=== PATIENT | male | born 1975 | race Caucasian/White ===

== ENCOUNTER 2016-12-15 10:24 | Inpatient (IN) | payer OTHER ==
[2016-12-15 11:10] VITALS: BMI 22.1
--- NOTE | 2016-12-15 13:34 | HP ---
CIWA Score - CIWA Score Nausea/Vomitin-Mild Nausea/No Vomiting Muscle Tremors: 4-Moderate,w/Arms Extend Anxiety: 3 Agitation: 3 Paroxysmal Sweats: 3 Orientation: 0-Oriented Tacttile Disturbances: 0-None Auditory Disturbances: 0-None Visual Disturbances: 0-None Headache: 0-None Present CIWA-Ar Total Score: 14 Admission ROS BHS - HPI Chief Complaint: I am here for detox. Allergies/Adverse Reactions: Allergies Allergy/AdvReac Type Severity Reaction Status Date / Time No Known Allergies Allergy Verified 12/15/16 11:42 History of Present Illness: pt is a 41yr old male with a history of alcohol dependence seeking detox for treatment. Exam Limitations: No Limitations - Ebola screening Have you traveled outside of the country in the last 21 days: No Have you had contact with anyone from an Ebola affected area: No Have you been sick,other than usual withdrawal symptoms: No Do you have a fever: No - Review of Systems Constitutional: Chills, Diaphoresis, Loss of Appetite, Night Sweats EENT: reports: No Symptoms Reported Respiratory: reports: Cough Cardiac: reports: Syncope GI: reports: No Symptoms Reported : reports: No Symptoms Reported Musculoskeletal: reports: No Symptoms Reported Neuro: reports: Tingling, Tremors Endocrine: reports: Excessive Sweating, Flushing, Intolerance to Cold, Intolerance to Heat Hematology: reports: No Symptoms Reported Psychiatric: reports: Judgement Intact, Orientated x3, Agitated, Anxious Other Systems: Reviewed and Negative Patient History - Patient Medical History Hx Anemia: No Hx Asthma: No Hx Chronic Obstructive Pulmonary Disease (COPD): No Hx Cancer: No Hx Cardiac Disorders: No Hx Congestive Heart Failure: No Hx Hypertension: No Hx Hypercholesterolemia: No Hx Pacemaker: No HX Cerebrovascular Accident: No Hx Seizures: No Hx Diabetes: No Hx Gastrointestinal Disorders: Yes (acid reflux) Hx Liver Disease: No Hx Genitourinary Disorders: No Hx Sexually Transmitted Disorders: No Hx Renal Disease (ESRD): No Hx Thyroid Disease: No Hx Human Immunodeficiency Virus (HIV): No (negative) Hx Hepatitis C: No (negative) Hx Depression: Yes Hx Suicide Attempt: No (denies) Hx Bipolar Disorder: No Hx Schizophrenia: No - Patient Surgical History Past Surgical History: No Hx Neurologic Surgery: No Hx Cataract Extraction: No Hx Cardiac Surgery: No Hx Lung Surgery: No Hx Breast Surgery: No Hx Breast Biopsy: No Hx Abdominal Surgery: No Hx Appendectomy: No Hx Cholecystectomy: No Hx Genitourinary Surgery: No Hx Section: No Hx Orthopedic Surgery: No Anesthesia Reaction: No - PPD History Previous Implant?: Yes Documented Results: Negative w/o proof Implanted On Prior [facility] Admission?: No PPD to be Administered?: Yes - Reproductive History Patient is a Female of Child Bearing Age (11 -55 yrs old): No - Smoking Cessation Smoking history: Current every day smoker Have you smoked in the past 12 months: Yes Aproximately how many cigarettes per day: 30 Hx Chewing Tobacco Use: No Initiated information on smoking cessation: Yes 'Breaking Loose' booklet given: 12/15/16 - Substance & Tx. History Hx Alcohol Use: Yes Hx Substance Use: No Substance Use Type: Alcohol Hx Substance Use Treatment: No - Substances Abused Alcohol-beer Route: Oral Frequency: Daily Amount used: 3-6 pks.beer Age of first use: 18 Date of Last Use: 12/15/16 Family Disease History - Family Disease History Family History: Denies Admission Physical Exam [facility] - Vital Signs Vital Signs: Vital Signs - 24 hr 12/15/16 11:08 Temperature 96.8 F L Pulse Rate 74 Respiratory 18 Rate Blood Pressure 110/73 - Physical General Appearance: Yes: Appropriately Dressed, Moderate Distress, Tremorous, Irritable, Sweating, Anxious HEENTM: Yes: Normal Voice, Rhinorrhea Respiratory: Yes: Lungs Clear, Normal Breath Sounds, No Respiratory Distress Neck: Yes: No masses,lesions,Nodules Breast: Yes: Within Normal Limits Cardiology: Yes: Regular Rhythm, Regular Rate, S1, S2 Abdominal: Yes: Normal Bowel Sounds Genitourinary: Yes: Within Normal Limits Back: Yes: Normal Inspection Musculoskeletal: Yes: full range of Motion Neurological: Yes: Fully Oriented, Alert, Normal Response Integumentary: Yes: Normal Color, Diaphoresis Lymphatic: Yes: Within Normal Limits - Diagnostic (1) Alcohol dependence with uncomplicated withdrawal Current Visit: Yes Status: Chronic (2) Nicotine dependence Current Visit: Yes Status: Chronic Qualifiers: Nicotine product type: cigarettes Substance use status: uncomplicated Qualified Code(s): F17.210 - Nicotine dependence, cigarettes, uncomplicated Cleared for Admission [facility] - Detox or Rehab [facility] Level of Care: Medically Managed Detox Regimen/Protocol: Librium S Breath Alcohol Content Breath Alcohol Content: 0.143 Urine Drug Screen - Results Drug Screen Negative: Yes
[2016-12-15] MEDS ORDERED: IBUPROFEN 400 MG TABLET (FP) PO PRN (13:46)
[2016-12-15] MEDS ORDERED: MAGNESIUM HYDROX 2400MG/30ML ORAL SUSPENSION 30 ML CUP PO PRN (13:46)
[2016-12-15] MEDS ORDERED: ACETAMINOPHEN 325 MG TABLET (FP) PO PRN (13:46)
[2016-12-15] MEDS ORDERED: MAG HYDROX/AL HYDROX/SIMETH 30 ML UNIT-DOSE CUP PO PRN (13:46)
[2016-12-15] MEDS ORDERED: MAGNESIUM CITRATE 300 ML BOTTLE PO PRN (13:46)
[2016-12-15] MEDS ORDERED: MENTHOL/PHENOL 1 EACH UD MM PRN (13:46)
[2016-12-15] MEDS ORDERED: P-EPHED 60MG/TRIPROLIDI 2.5MG TABLET PO PRN (13:46)
[2016-12-15] MEDS ORDERED: hydrOXYzine PAMOATE 50 MG CAPSULE (FP) PO PRN (13:46)
[2016-12-15] MEDS ORDERED: chlordiazePOXIDE HCL 25 MG CAPSULE PO PRN (13:46)
[2016-12-15] MEDS ORDERED: LOPERAMIDE HCL 2 MG CAPSULE PO PRN (13:46)
[2016-12-15] MEDS ORDERED: diphenhydrAMINE HCL 50 MG CAPSULE PO PRN (13:46)
[2016-12-15] MEDS ORDERED: chlordiazePOXIDE HCL 25 MG CAPSULE PO ONE (14:03)
--- NOTE | 2016-12-15 16:21 | EKG ---
Test Reason : Blood Pressure : / mmHG Vent. Rate : 074 BPM Atrial Rate : 074 BPM P-R Int : 168 ms QRS Dur : 092 ms QT Int : 382 ms P-R-T Axes : 080 083 073 degrees QTc Int : 424 ms NORMAL SINUS RHYTHM POSSIBLE LEFT ATRIAL ENLARGEMENT ST ELEVATION, CONSIDER EARLY REPOLARIZATION BORDERLINE ECG NO PREVIOUS ECGS AVAILABLE Confirmed by MATHIEU JANE MD ([id number]) on 12/15/2016 4:21:43 PM Referred By: Confirmed By:MATHIEU JANE MD
[2016-12-15 17:01] LABS: URINE APPEARANCE CLEAR; URINE BILIRUBIN NEGATIVE (NEGATIVE); URINE BLOOD NEGATIVE (NEGATIVE); URINE COLOR COLORLESS; URINE GLUCOSE (UA) NEGATIVE (NEGATIVE); URINE KETONE NEGATIVE (NEGATIVE); URINE LEUK ESTERASE NEGATIVE (NEGATIVE); URINE NITRITE NEGATIVE (NEGATIVE); URINE PROTEIN NEGATIVE (NEGATIVE); URINE UROBILINOGEN NEGATIVE E.U./dl (0.2-1.0)
[2016-12-15] MEDS: chlordiazePOXIDE HCL 25 MG CAPSULE PO SCH ×2 (17:21→22:18)
[2016-12-15] MEDS: guaiFENesin/D-METHORPHAN HB 10 ML UNIT-DOSE CUPS PO PRN (18:49)
[2016-12-15] MEDS: THIAMINE HCL 100 MG TABLET (FP) PO SCH (22:18)
[2016-12-16] MEDS: chlordiazePOXIDE HCL 25 MG CAPSULE PO SCH ×4 (05:26→22:13)
[2016-12-16 09:35] LABS: MCH 30.8 pg (25.7-33.7); MCHC 33.7 g/dl (32.0-35.9); MEAN CELL VOLUME 91.4 fl (80-96); MEAN PLT VOLUME 8.6 fl (7.5-11.1); PLATELET COUNT 206 K/MM3 (134-434); WHITE BLOOD COUNT 10.3 K/mm3 (4.0-10.0)
[2016-12-16 10:12] LABS: HIV 1 & 2 AB NEGATIVE; HIV 1 AGp24 NEGATIVE
[2016-12-16] MEDS: NICOTINE 21 MG/24 HOURS TOPICAL PATCH TD SCH (10:24)
[2016-12-16] MEDS: PRENATAL VITAMINS W/ FOLIC ACID TABLET (FP) PO SCH (10:24)
[2016-12-16] MEDS: NICOTINE POLACRILEX 4 MG GUM BUC PRN (10:25)
--- NOTE | 2016-12-16 10:44 | PN ---
S CIWA - CIWA Score Nausea/Vomitin-No Nausea/No Vomiting Muscle Tremors: 4-Moderate,w/Arms Extend Anxiety: 4-Mod. Anxious/Guarded Agitation: 3 Paroxysmal Sweats: 3 Orientation: 0-Oriented Tacttile Disturbances: 0-None Auditory Disturbances: 0-None Visual Disturbances: 0-None Headache: 0-None Present CIWA-Ar Total Score: 14 BHS Progress Note (SOAP) Subjective: Anxiety,tremors,sweating Objective: 12/16/16 10:44 Vital Signs - 8 hr 12/16/16 12/16/16 12/16/16 03:30 06:30 10:32 Temperature 96.9 F L 96.5 F L Pulse Rate 72 73 Respiratory 18 18 18 Rate Blood Pressure 113/78 102/65 Laboratory Tests 12/15/16 12/15/16 12/15/16 08:00 13:00 13:00 WBC RBC Hgb Hct MCV MCHC RDW Plt Count MPV Urine Color Colorless Urine Appearance Clear Urine pH 5.0 Ur Specific [place] 1.002 Urine Protein Negative Urine Glucose (UA) Negative Urine Ketones Negative Urine Blood Negative Urine Nitrite Negative Urine Bilirubin Negative Urine Urobilinogen Negative Ur Leukocyte Esterase Negative RPR Titer Hepatitis C Antibody <0.1 HIV 1&2 Antibody Screen Negative HIV P24 Antigen Negative 12/16/16 12/16/16 07:47 07:47 WBC 10.3 H RBC 5.38 Hgb 16.6 Hct 49.2 H MCV 91.4 MCHC 33.7 RDW 14.0 Plt Count 206 MPV 8.6 Urine Color Urine Appearance Urine pH Ur Specific [place] Urine Protein Urine Glucose (UA) Urine Ketones Urine Blood Urine Nitrite Urine Bilirubin Urine Urobilinogen Ur Leukocyte Esterase RPR Titer Nonreactive Hepatitis C Antibody HIV 1&2 Antibody Screen HIV P24 Antigen labs noted Assessment: 12/16/16 10:45 withdrawal sx. Plan: Continue detox
[2016-12-16 10:48] LABS: ALBUMIN 4.3 g/dl (3.4-5.0); ALK PHOS 98 U/L (45-117); ANION GAP 14 (8-16); BILIRUBIN,TOTAL 0.3 mg/dL (0.2-1.0); CO2 24 mmol/L (21-32); CREATININE 0.8 mg/dL (0.7-1.3); GLUCOSE,RANDOM 67 mg/dL (74-106); SGOT/AST 17 U/L (15-37); SGPT/ALT 20 U/L (12-78); TOT PROT 7.8 g/dl (6.4-8.2)
--- NOTE | 2016-12-16 13:31 | CONSULT ---
[facility] Psychiatric Consult - Data Date of interview: 12/16/16 Admission source: [facility] Identifying data: Readmission to [facility] for this 41 y/o male seeking detox treatment on for alcohol dependence.Patient is ,a father of two,currently homeless,unemployed and supported on food stamps. Substance Abuse History: - Smoking Cessation. Smoking history: Current every day smoker. Have you smoked in the past 12 months: Yes. Aproximately how many cigarettes per day: 30. Hx Chewing Tobacco Use: No. Initiated information on smoking cessation: Yes. 'Breaking Loose' booklet given: 12/15/16. - Substance & Tx. History. Hx Alcohol Use: Yes. Hx Substance Use: No. Substance Use Type : Alcohol. Hx Substance Use Treatment: No. - Substances Abused. Alcohol- beer. Route: Oral. Frequency: Daily. Amount used: 3-6 pks.beer. Age of first use: 18. Date of Last Use: 12/15/16. Confirmed by the patient in my interview. Medical History: GERD.History is otherwise unremarkable. Psychiatric History: No reported history of psychiatric hospitalizations.Patient reports psychiatric OPD care at the [facility] in [facility].Diagnosed with MDD and Bipolar Disorder.Medication :zoloft 50 mg/day as per patient.Mr Camargo denies history of suicide attempts and he indicates that his sleep remains adequate. Physical/Sexual Abuse/Trauma History: Patient denies. Additional Comment: Drug Screen is negative. Mental Status Exam - Mental Status Exam Alert and Oriented to: Time, Place, Person Cognitive Function: Good Patient Appearance: Well Groomed Mood: Withdrawn, Anxious, Apprehensive, Hopeful Affect: Mood Congruent Patient Behavior: Fatigued, Appropriate, Cooperative Speech Pattern: Clear Voice Loudness: Normal Thought Process: Goal Oriented Thought Disorder: Not Present Hallucinations: Denies Suicidal Ideation: Denies Homicidal Ideation: Denies Insight/Judgement: Fair Appetite: Good Muscle strength/Tone: Normal Gait/Station: Normal Psychiatric Findings - Problem List ([place] 1, 2,3) (1) Alcohol dependence with uncomplicated withdrawal Current Visit: Yes Status: Acute (2) Nicotine dependence Current Visit: Yes Status: Acute Qualifiers: Nicotine product type: cigarettes Substance use status: uncomplicated Qualified Code(s): F17.210 - Nicotine dependence, cigarettes, uncomplicated (3) Substance induced mood disorder Current Visit: Yes Status: Acute - Initial Treatment Plan Initial Treatment Plan: Psychoeducation.Detoxification.Medication : zoloft 50 mg po daily.Side effects/benefits discussed with this patient.He agrees with this careplan.Observation.
[2016-12-16] MEDS: SERTRALINE HCL 50 MG TABLET (FP) PO SCH (14:29)
[2016-12-16] MEDS: guaiFENesin/D-METHORPHAN HB 10 ML UNIT-DOSE CUPS PO PRN (17:38)
[2016-12-16] MEDS: THIAMINE HCL 100 MG TABLET (FP) PO SCH (22:13)
[2016-12-17] MEDS: chlordiazePOXIDE HCL 25 MG CAPSULE PO SCH ×2 (06:05→10:10)
[2016-12-17] MEDS: NICOTINE 21 MG/24 HOURS TOPICAL PATCH TD SCH (10:10)
[2016-12-17] MEDS: PRENATAL VITAMINS W/ FOLIC ACID TABLET (FP) PO SCH (10:10)
[2016-12-17] MEDS: SERTRALINE HCL 50 MG TABLET (FP) PO SCH (10:10)
[2016-12-17] MEDS: guaiFENesin/D-METHORPHAN HB 10 ML UNIT-DOSE CUPS PO PRN (10:11)
[2016-12-17] MEDS: NICOTINE POLACRILEX 4 MG GUM BUC PRN (10:11)
--- NOTE | 2016-12-17 11:04 | PN ---
S CIWA - CIWA Score Nausea/Vomitin-Mild Nausea/No Vomiting Muscle Tremors: 1-None Visible, but [place] Anxiety: 3 Agitation: 4-Moderately Restless Paroxysmal Sweats: No Perspiration Orientation: 0-Oriented Tacttile Disturbances: 1-Very Mild Itch/Numbness Auditory Disturbances: 0-None Visual Disturbances: 0-None Headache: 3-Moderate CIWA-Ar Total Score: 13 BHS Progress Note (SOAP) Subjective: Reports body aches, mild tremors, nausea, interrupted sleep, anxious Objective: Vital Signs Temperature 98.2 F 12/17/16 09:46 Pulse Rate 65 12/17/16 09:46 Respiratory Rate 18 12/17/16 09:46 Blood Pressure 109/71 12/17/16 09:46 O2 Sat by Pulse Oximetry (%) Laboratory Last Values WBC 10.3 K/mm3 (4.0-10.0) H 12/16/16 07:47 RBC 5.38 M/mm3 (4.00-5.60) 12/16/16 07:47 Hgb 16.6 GM/dL (11.7-16.9) 12/16/16 07:47 Hct 49.2 % (35.4-49) H 12/16/16 07:47 MCV 91.4 fl (80-96) 12/16/16 07:47 MCHC 33.7 g/dl (32.0-35.9) 12/16/16 07:47 RDW 14.0 % (11.9-15.9) 12/16/16 07:47 Plt Count 206 K/MM3 (134-434) 12/16/16 07:47 MPV 8.6 fl (7.5-11.1) 12/16/16 07:47 Sodium 146 mmol/L (136-145) H 12/16/16 07:47 Potassium 4.7 mmol/L (3.5-5.1) 12/16/16 07:47 Chloride 108 mmol/L (98-107) H 12/16/16 07:47 Carbon Dioxide 24 mmol/L (21-32) 12/16/16 07:47 Anion Gap 14 (8-16) 12/16/16 07:47 BUN 11 mg/dL (7-18) 12/16/16 07:47 Creatinine 0.8 mg/dL (0.7-1.3) 12/16/16 07:47 Creat Clearance w eGFR > 60 (>60) 12/16/16 07:47 Random Glucose 67 mg/dL (74-106) L 12/16/16 07:47 Calcium 9.0 mg/dL (8.5-10.1) 12/16/16 07:47 Total Bilirubin 0.3 mg/dL (0.2-1.0) 12/16/16 07:47 AST 17 U/L (15-37) 12/16/16 07:47 ALT 20 U/L (12-78) 12/16/16 07:47 Alkaline Phosphatase 98 U/L (45-117) 12/16/16 07:47 Total Protein 7.8 g/dl (6.4-8.2) 12/16/16 07:47 Albumin 4.3 g/dl (3.4-5.0) 12/16/16 07:47 Urine Color Colorless 12/15/16 13:00 Urine Appearance Clear 12/15/16 13:00 Urine pH 5.0 (5.0-8.0) 12/15/16 13:00 Ur Specific [place] 1.002 (1.001-1.035) 12/15/16 13:00 Urine Protein Negative (NEGATIVE) 12/15/16 13:00 Urine Glucose (UA) Negative (NEGATIVE) 12/15/16 13:00 Urine Ketones Negative (NEGATIVE) 12/15/16 13:00 Urine Blood Negative (NEGATIVE) 12/15/16 13:00 Urine Nitrite Negative (NEGATIVE) 12/15/16 13:00 Urine Bilirubin Negative (NEGATIVE) 12/15/16 13:00 Urine Urobilinogen Negative E.U./dl (0.2-1.0) 12/15/16 13:00 Ur Leukocyte Esterase Negative (NEGATIVE) 12/15/16 13:00 RPR Titer Nonreactive (NONREACTIVE) 12/16/16 07:47 Hepatitis C Antibody <0.1 s/co ratio (0.0-0.9) 12/15/16 13:00 HIV 1&2 Antibody Screen Negative 12/15/16 08:00 HIV P24 Antigen Negative 12/15/16 08:00 labs noted Assessment: withdrawal symptoms Plan: Continue Detox
[2016-12-17] MEDS: chlordiazePOXIDE 5 MG CAPSULE PO SCH ×2 (17:35→22:14)
[2016-12-17] MEDS: THIAMINE HCL 100 MG TABLET (FP) PO SCH (22:14)
[2016-12-18] MEDS: chlordiazePOXIDE 5 MG CAPSULE PO SCH ×2 (05:57→10:18)
[2016-12-18] MEDS: SERTRALINE HCL 50 MG TABLET (FP) PO SCH (10:18)
[2016-12-18] MEDS: PRENATAL VITAMINS W/ FOLIC ACID TABLET (FP) PO SCH (10:18)
[2016-12-18] MEDS: NICOTINE 21 MG/24 HOURS TOPICAL PATCH TD SCH (10:18)
[2016-12-18] MEDS: NICOTINE POLACRILEX 4 MG GUM BUC PRN (10:18)
[2016-12-18] MEDS: guaiFENesin/D-METHORPHAN HB 10 ML UNIT-DOSE CUPS PO PRN ×2 (10:19→17:33)
--- NOTE | 2016-12-18 15:02 | PN ---
BHS Progress Note (SOAP) Subjective: Sweating, anxious, nausea, body aches Objective: 12/18/16 15:01 Last Vital Signs Temp Pulse Resp BP Pulse Ox 96.1 F L 52 L 18 97/63 12/18/16 13:12 12/18/16 13:12 12/18/16 13:12 12/18/16 13:12 Laboratory Tests 12/15/16 12/15/16 12/15/16 08:00 13:00 13:00 WBC RBC Hgb Hct MCV MCHC RDW Plt Count MPV Sodium Potassium Chloride Carbon Dioxide Anion Gap BUN Creatinine Creat Clearance w eGFR Random Glucose Calcium Total Bilirubin AST ALT Alkaline Phosphatase Total Protein Albumin Urine Color Colorless Urine Appearance Clear Urine pH 5.0 Ur Specific [place] 1.002 Urine Protein Negative Urine Glucose (UA) Negative Urine Ketones Negative Urine Blood Negative Urine Nitrite Negative Urine Bilirubin Negative Urine Urobilinogen Negative Ur Leukocyte Esterase Negative RPR Titer Hepatitis C Antibody <0.1 HIV 1&2 Antibody Screen Negative HIV P24 Antigen Negative 12/16/16 12/16/16 12/16/16 07:47 07:47 07:47 WBC 10.3 H RBC 5.38 Hgb 16.6 Hct 49.2 H MCV 91.4 MCHC 33.7 RDW 14.0 Plt Count 206 MPV 8.6 Sodium 146 H Potassium 4.7 Chloride 108 H Carbon Dioxide 24 Anion Gap 14 BUN 11 Creatinine 0.8 Creat Clearance w eGFR > 60 Random Glucose 67 L Calcium 9.0 Total Bilirubin 0.3 AST 17 ALT 20 Alkaline Phosphatase 98 Total Protein 7.8 Albumin 4.3 Urine Color Urine Appearance Urine pH Ur Specific [place] Urine Protein Urine Glucose (UA) Urine Ketones Urine Blood Urine Nitrite Urine Bilirubin Urine Urobilinogen Ur Leukocyte Esterase RPR Titer Nonreactive Hepatitis C Antibody HIV 1&2 Antibody Screen HIV P24 Antigen Labs noted Assessment: 12/18/16 15:02 Withdrawal symptoms Plan: Continue detox
[2016-12-18] MEDS: chlordiazePOXIDE HCL 10 MG CAPSULE PO SCH ×2 (17:32→22:13)
[2016-12-18] MEDS: THIAMINE HCL 100 MG TABLET (FP) PO SCH (22:13)
[2016-12-19] MEDS: chlordiazePOXIDE HCL 10 MG CAPSULE PO SCH (05:19)
[2016-12-19] MEDS: NICOTINE POLACRILEX 4 MG GUM BUC PRN (05:22)
[2016-12-19 09:43] VITALS: BP 96/63; PULSE 53; TEMP 96.6
[2016-12-19] MEDS: SERTRALINE HCL 50 MG TABLET (FP) PO SCH (09:47)
[2016-12-19] MEDS: PRENATAL VITAMINS W/ FOLIC ACID TABLET (FP) PO SCH (09:47)
[2016-12-19] MEDS: NICOTINE 21 MG/24 HOURS TOPICAL PATCH TD SCH (09:47)
--- NOTE | 2016-12-19 10:26 | DS ---
[facility] Detox Discharge Summary Admission Date: 12/15/16 Discharge Date: 12/19/16 - History Present History: Alcohol Dependence Pertinent Past History: GERD - Physical Exam Results Vital Signs: Vital Signs Temperature 96.6 F L 12/19/16 09:43 Pulse Rate 53 L 12/19/16 09:43 Respiratory Rate 16 12/19/16 09:43 Blood Pressure 96/63 12/19/16 09:43 O2 Sat by Pulse Oximetry (%) Pertinent Admission Physical Exam Findings: Withdrawal sx. - Treatment Hospital Course: Detox Protocol Followed, Detoxed Safely, Responded well, Discharged Condition Good, Rehab Referral Accepted Patient has Accepted a Rehab Referral to: [facility] - Medication Discharge Medications: Ambulatory Orders Sertraline HCl [Zoloft -] 50 mg PO DAILY 12/15/16 Sertraline HCl [Zoloft -] 50 mg PO DAILY #30 tablet 12/16/16 - Diagnosis (1) Alcohol dependence with uncomplicated withdrawal Current Visit: Yes Status: Acute (2) Nicotine dependence Current Visit: Yes Status: Acute Qualifiers: Nicotine product type: cigarettes Substance use status: uncomplicated Qualified Code(s): F17.210 - Nicotine dependence, cigarettes, uncomplicated (3) Substance induced mood disorder Current Visit: Yes Status: Acute - AMA Did Patient Leave Against Medical Advice: No
== END 2016-12-19 10:20 | disposition other institution (70) | DRG 775 ==
LOC: YASAS 10:24 → Y3N 13:04
PROVIDERS: ADMIT Internal Medicine; ATTEND Internal Medicine
PROC: HZ2ZZZZ Detoxification Services for Substance Abuse Treatment (ICD-10-PCS; principal; 2016-12-19)
DX: F10.230 Alcohol dependence with withdrawal, uncomplicated (principal); F17.210 Nicotine dependence, cigarettes, uncomplicated; F19.24 Other psychoactive substance dependence with psychoactive substance-induced mood disorder; Z59.0 Homelessness
CPT/HCPCS: 36415; 80053; 81003; 85027; 86593; 87389; 93005; 93010

== ENCOUNTER 2019-05-02 09:22 | Inpatient (IN) | payer OTHER ==
[2019-05-02 09:36] VITALS: BMI 22.2
--- NOTE | 2019-05-02 10:14 | HP ---
CIWA Score Nausea/Vomitin-No Nausea/No Vomiting Muscle Tremors: 2 Anxiety: 5 Agitation: 4-Moderately Restless Paroxysmal Sweats: No Perspiration Orientation: 0-Oriented Tacttile Disturbances: 0-None Auditory Disturbances: 0-None Visual Disturbances: 0-None Headache: 0-None Present CIWA-Ar Total Score: 11 - Admission Criteria [facility]AS[facility] Guidelines: Admission for Medically Managed Detox: Requires at least one of the followin. CIWA greater than 12 2. Seizures within the past 24 hours 3. Delirium tremens within the past 24 hours 4. Hallucinations within the past 24 hours 5. Acute intervention needed for co occurring medical disorder 6. Acute intervention needed for co occurring psychiatric disorder 7. Severe withdrawal that cannot be handled at a lower level of care (continued vomiting, continued diarrhea, abnormal vital signs) requiring intravenous medication and/or fluids 8. Admission ROS BHS - HPI Allergies/Adverse Reactions: Allergies Allergy/AdvReac Type Severity Reaction Status Date / Time No Known Allergies Allergy Verified 05/02/19 09:31 History of Present Illness: pt here requesting detox from etoh use , reports 48 beers /day since 3 .5 weeks ago , reports binge-drinking , with periods of sobriety in between 2 days , reports tremors if not drinking , denies seizures, + blackouts , + falls while while intoxicated , most recently Monday w/ abrasions on elbows and knees , denies pain at this time except for blisters on his feet from walking around . Starts drinking upon awakening , latest use Monday , current symptoms as above. Latest intake of 48 beers was on Monday . cannabis : 3 gr/week tobacco : 1 10/26 ppd . PMHX : psoriasis pshx : denies PSych : bipolar d/o , denies SI / HI at this time meds : denies Exam Limitations: No Limitations - Ebola screening Have you traveled outside of the country in the last 21 days: No Have you had contact with anyone from an Ebola affected area: No Do you have a fever: No - Review of Systems Constitutional: See HPI, Loss of Appetite EENT: reports: No Symptoms Reported Respiratory: reports: No Symptoms reported Cardiac: reports: No Symptoms Reported GI: reports: Diarrhea : reports: No Symptoms Reported Musculoskeletal: reports: Other (feet) Integumentary: reports: Other (reprots blisters on feet) Neuro: reports: Headache Endocrine: reports: No Symptoms Reported Psychiatric: reports: Orientated x3, Anxious Patient History - Patient Medical History Hx Anemia: No Hx Asthma: No Hx Chronic Obstructive Pulmonary Disease (COPD): No Hx Cancer: No Hx Cardiac Disorders: No Hx Congestive Heart Failure: No Hx Hypertension: No Hx Hypercholesterolemia: No Hx Pacemaker: No HX Cerebrovascular Accident: No Hx Seizures: No Hx Diabetes: No Hx Gastrointestinal Disorders: Yes (GERD) Hx Liver Disease: No Hx Genitourinary Disorders: No Hx Sexually Transmitted Disorders: No Hx Renal Disease (ESRD): No Hx Thyroid Disease: No Hx Human Immunodeficiency Virus (HIV): No (negative) Hx Hepatitis C: No (negative) Hx Depression: Yes Hx Suicide Attempt: No (denies) Hx Bipolar Disorder: No Hx Schizophrenia: No - Patient Surgical History Past Surgical History: No Hx Neurologic Surgery: No Hx Cataract Extraction: No Hx Cardiac Surgery: No Hx Lung Surgery: No Hx Breast Surgery: No Hx Breast Biopsy: No Hx Abdominal Surgery: No Hx Appendectomy: No Hx Cholecystectomy: No Hx Genitourinary Surgery: No Hx Section: No Hx Orthopedic Surgery: No Anesthesia Reaction: No - PPD History Date: 12/17/16 Results: 0 mm - Smoking Cessation Smoking history: Current every day smoker Have you smoked in the past 12 months: Yes Aproximately how many cigarettes per day: 30 Hx Chewing Tobacco Use: No Initiated information on smoking cessation: No - Substances abused Alcohol Substance route: Oral Frequency: Daily Amount used: 60 cans of beer (12 ounces) Age of first use: 18 Date of last use: 04/29/19 Admission Physical Exam S - Vital Signs Vital Signs: Vital Signs - 24 hr 05/02/19 05/02/19 09:27 09:48 Temperature 96.9 F L 96.9 F L Pulse Rate 60 60 Respiratory 18 18 Rate Blood Pressure 117/77 117/77 - Physical General Appearance: Yes: Moderate Distress, Irritable, Anxious HEENTM: Yes: Hearing grossly Normal, Normocephalic, Normal Voice Respiratory: Yes: Lungs Clear, Normal Breath Sounds, No Respiratory Distress, No Accessory Muscle Use Neck: Yes: No masses,lesions,Nodules, Trachea in good position Cardiology: Yes: Regular Rhythm, Regular Rate, S1, S2, Tachycardia Abdominal: Yes: Normal Bowel Sounds, Non Tender, Soft Back: Yes: Normal Inspection Musculoskeletal: Yes: Gait Steady, Joint Stiffness (rajwinder ankles) Extremities: Yes: Pedal Edema Neurological: Yes: Fully Oriented, Alert, Motor Strength 5/5, Depressed Affect Integumentary: Yes: Warm, Other (excoriations rajwinder UE / LE , rajwinder heels open superficial abrasions serosanguinolent d/c) - Diagnostic (1) Alcohol dependence with uncomplicated withdrawal Current Visit: Yes Status: Acute (2) Nicotine dependence Current Visit: No Status: Acute Qualifiers: Nicotine product type: cigarettes Substance use status: uncomplicated Qualified Code(s): F17.210 - Nicotine dependence, cigarettes, uncomplicated Breathalyzer - Breathalyzer Breathalyzer: 0 Urine Drug Screen - Test Device Lot number: [id number] Expiration date: 02/19/21 - Control Is test valid?: Yes - Results Drug screen NEGATIVE: No Urine drug screen results: THC-Marijuana Inpatient Rehab Admission - Rehab Decision to Admit Inpatient rehab admission?: No
[2019-05-02] MEDS ORDERED: ACETAMINOPHEN 325 MG TABLET (FP) PO PRN ×2 (10:32)
[2019-05-02] MEDS ORDERED: MELATONIN 5 MG TABLETS PO PRN (10:32)
[2019-05-02] MEDS ORDERED: MAGNESIUM HYDROX 2400MG/30ML ORAL SUSPENSION 30 ML CUP PO PRN (10:32)
[2019-05-02] MEDS ORDERED: BISMUTH SUBSALICYLATE 262 MG/15 ML BTL PO PRN (10:32)
[2019-05-02] MEDS ORDERED: MENTHOL/PHENOL 1 EACH UD MM PRN (10:32)
[2019-05-02] MEDS ORDERED: MAG HYDROX/AL HYDROX/SIMETH 30 ML UNIT-DOSE CUP PO PRN (10:32)
[2019-05-02] MEDS ORDERED: IBUPROFEN 400 MG TABLET (FP) PO PRN (10:32)
[2019-05-02] MEDS ORDERED: MAGNESIUM CITRATE 300 ML BOTTLE PO PRN (10:32)
[2019-05-02] MEDS ORDERED: hydrOXYzine PAMOATE 25 MG CAPSULE (FP) PO PRN (10:32)
[2019-05-02] MEDS ORDERED: chlordiazePOXIDE HCL 25 MG CAPSULE PO PRN (10:35)
[2019-05-02] MEDS: chlordiazePOXIDE HCL 25 MG CAPSULE PO SCH ×3 (12:28→22:15)
[2019-05-02] MEDS: BACITRACIN/POLYMYXIN B SULFATE 15 GM TUBE TP SCH ×2 (12:32→22:14)
[2019-05-02 15:03] LABS: HEMATOCRIT 46.7 % (35.4-49); HEMOGLOBIN 15.6 GM/dL (11.7-16.9); MCH 31.4 pg (25.7-33.7); MCHC 33.4 g/dl (32.0-35.9); MEAN PLT VOLUME 8.6 fl (7.5-11.1); PLATELET COUNT 241 K/MM3 (134-434); RBC 4.97 M/mm3 (4.00-5.60); RDW 14.1 % (11.9-15.9); WHITE BLOOD COUNT 7.1 K/mm3 (4.0-10.0)
[2019-05-02 15:18] LABS: ALBUMIN 4.3 g/dl (3.4-5.0); BILIRUBIN,TOTAL 0.7 mg/dL (0.2-1); BLOOD UREA NITROGEN 14.4 mg/dL (7-18); CALCIUM 9.3 mg/dL (8.5-10.1); CREATININE 0.9 mg/dL (0.55-1.3); POTASSIUM 4.4 mmol/L (3.5-5.1); TOT PROT 7.8 g/dl (6.4-8.2)
[2019-05-02] MEDS: NICOTINE POLACRILEX 2 MG GUM BUC PRN ×2 (18:56→22:17)
[2019-05-02] MEDS: THIAMINE HCL 100 MG TABLET (FP) PO SCH (22:14)
[2019-05-03] MEDS: chlordiazePOXIDE HCL 25 MG CAPSULE PO SCH ×4 (05:53→22:07)
--- NOTE | 2019-05-03 10:18 | CONSULT ---
[facility] Psychiatric Consult - Data Date of interview: 05/03/19 Admission source: [facility] Identifying data: Patient is a 43 year old male, father of two, unemployed, homeless, and is not currently by any financial assistance. This is one of multiple admissions for patient. Patient admitted to for alcohol dependence. Substance Abuse History: Smoking Cessation. Smoking history: Current every day smoker. Have you smoked in the past 12 months: Yes. Aproximately how many cigarettes per day: 30. Hx Chewing Tobacco Use: No. Initiated information on smoking cessation: No. - Substances abused. Alcohol. Substance route: Oral. Frequency: Daily. Amount used: 60 cans of beer (12 ounces). Age of first use: 18. Date of last use: 04/29/19 Medical History: GERD Psychiatric History: Patient's first psychiatric contact was in [id number] for depression secondary to marital problems and was prescribed prozac. Patient reports h/o multiple psychiatric hospitalizations most recently at [facility] in the winter of 2017 for suicidal ideation and was prescribed abilify. Patient has an additional psychiatric hospitalization at [place], [place] for 3-4 days for suicidal ideations under the infuence of alcohol. Reports receiving psychiatric treatment in detox/rehab facilities ( [facility] (2016) and by a cost recovery technician in 2017 in which he was prescribed paxil and lithium. Diagnosis of Bipolar disorder. States his manic episiode of elation, impuslvity, racing thoughts, insomnia, and quickness to violence usually occurs in the summer. States he is not on psychotropic medications (last accepted psychotropic medication when admitted to [facility] 7- 8 months ag). Patient denies h/o suicide attempt. At present, patient is fatigue and mildly irritable. Physical/Sexual Abuse/Trauma History: denies. Mental Status Exam - Mental Status Exam Alert and Oriented to: Time, Place, Person Cognitive Function: Good Patient Appearance: Well Groomed Mood: Withdrawn, Irritable Affect: Mood Congruent Patient Behavior: Cooperative Speech Pattern: Appropriate Voice Loudness: Normal Thought Process: Goal Oriented Thought Disorder: Not Present Hallucinations: Denies Suicidal Ideation: Denies Homicidal Ideation: Denies Insight/Judgement: Poor Sleep: Fair Appetite: Fair Muscle strength/Tone: Normal Gait/Station: Normal Psychiatric Findings - Problem List ([place] 1, 2,3) (1) Bipolar disorder Current Visit: Yes Status: Suspected (2) Alcohol dependence with uncomplicated withdrawal Current Visit: Yes Status: Acute (3) Nicotine dependence Current Visit: No Status: Acute Qualifiers: Nicotine product type: cigarettes Substance use status: uncomplicated Qualified Code(s): F17.210 - Nicotine dependence, cigarettes, uncomplicated (4) Substance induced mood disorder Current Visit: Yes Status: Acute (5) Cannabis dependence Current Visit: No Status: Chronic - Initial Treatment Plan Initial Treatment Plan: Psychoeducation provided. Detoxification in progress. Will order Seroquel 50mg HS (patient's preferred dose). Benefits and side effects discussed. Verbal consent given.
[2019-05-03] MEDS: BACITRACIN/POLYMYXIN B SULFATE 15 GM TUBE TP SCH ×2 (10:30→22:08)
[2019-05-03] MEDS: PRENATAL VITAMINS W/ FOLIC ACID TABLET (FP) PO SCH (10:30)
[2019-05-03] MEDS ORDERED: PNEUMOC 13-VAL CONJ-DIP CRM/PF 0.5 ML DISP.SYRIN IM ONE (12:00)
[2019-05-03] MEDS ORDERED: PNEUMOCOCCAL 23 VACCINE 0.5 ML VIAL IM ONE (12:00)
--- NOTE | 2019-05-03 16:02 | PN ---
[facility] CIWA - CIWA Score Nausea/Vomitin (Diarrhea, Poor Appetite.) Muscle Tremors: None Anxiety: 2 Agitation: 1-Slight > Activity Paroxysmal Sweats: 3 Orientation: 0-Oriented Tacttile Disturbances: 0-None Auditory Disturbances: 2-Mild Harshness/Frighten Visual Disturbances: 1-Very Mild Sensitivity Headache: 0-None Present CIWA-Ar Total Score: 11 S Progress Note (SOAP) Subjective: Sweating, Diarrhea, Interrupted Sleep, Fatigue. Objective: PATIENT A & O X 3, OBSERVED AMBULATING ON UNIT UNASSISTED. IN NO ACUTE DISTRESS. 05/03/19 16:00 Vital Signs Temperature 96.1 F L 05/03/19 13:11 Pulse Rate 66 05/03/19 13:11 Respiratory Rate 18 05/03/19 13:11 Blood Pressure 102/67 05/03/19 13:11 O2 Sat by Pulse Oximetry (%) Laboratory Tests 05/02/19 05/02/19 05/02/19 11:40 11:40 11:40 WBC 7.1 RBC 4.97 Hgb 15.6 Hct 46.7 MCV 94.0 MCH 31.4 MCHC 33.4 RDW 14.1 Plt Count 241 MPV 8.6 Sodium 138 Potassium 4.4 Chloride 101 Carbon Dioxide 31 Anion Gap 7 L BUN 14.4 Creatinine 0.9 Est GFR (CKD-EPI)AfAm 122.52 Est GFR (CKD-EPI)NonAf 105.71 Random Glucose 86 Calcium 9.3 Total Bilirubin 0.7 AST 32 ALT 39 Alkaline Phosphatase 95 Total Protein 7.8 Albumin 4.3 RPR Titer TB Test (QFT) Nil Cancelled TB Test (QFT) Mitogen Cancelled TB Test (QFT) Antigen Cancelled TB Test (QFT) Cancelled TB Positive Criteria Cancelled 05/02/19 11:40 WBC RBC Hgb Hct MCV MCH MCHC RDW Plt Count MPV Sodium Potassium Chloride Carbon Dioxide Anion Gap BUN Creatinine Est GFR (CKD-EPI)AfAm Est GFR (CKD-EPI)NonAf Random Glucose Calcium Total Bilirubin AST ALT Alkaline Phosphatase Total Protein Albumin RPR Titer Nonreactive TB Test (QFT) Nil TB Test (QFT) Mitogen TB Test (QFT) Antigen TB Test (QFT) TB Positive Criteria LABS NOTED. TB / QFT TEST RESULTS PENDING. 05/03/19 16:00 Assessment: 05/03/19 16:00 WITHDRAWAL SYMPTOMS. Plan: CONTINUE DETOX. INCREASE DAILY PO WATER INTAKE. PRN PEPTO-BISMOL PO FOR DIARRHEA. ENSURE PO FOR CALORIC SUPPLEMENTATION.
[2019-05-03] MEDS: NICOTINE POLACRILEX 2 MG GUM BUC PRN ×2 (17:54→21:38)
[2019-05-03] MEDS: THIAMINE HCL 100 MG TABLET (FP) PO SCH (22:07)
[2019-05-03] MEDS: QUEtiapine FUMARATE 50 MG TABLET PO SCH (22:07)
[2019-05-04] MEDS: chlordiazePOXIDE HCL 25 MG CAPSULE PO SCH ×4 (05:52→22:27)
[2019-05-04] MEDS: PRENATAL VITAMINS W/ FOLIC ACID TABLET (FP) PO SCH (10:12)
[2019-05-04] MEDS: BACITRACIN/POLYMYXIN B SULFATE 15 GM TUBE TP SCH ×2 (10:12→22:27)
[2019-05-04] MEDS: NICOTINE POLACRILEX 2 MG GUM BUC PRN ×2 (12:27→17:16)
[2019-05-04] MEDS ORDERED: METHOCARBAMOL 500 MG TABLET PO PRN (12:59)
--- NOTE | 2019-05-04 13:03 | PN ---
[facility] CIWA - CIWA Score Nausea/Vomitin-No Nausea/No Vomiting Muscle Tremors: None Anxiety: 2 Agitation: 0-Normal Activity Paroxysmal Sweats: 3 Orientation: 0-Oriented Tacttile Disturbances: 2-Mild Itch/Numbness/Burn Auditory Disturbances: 0-None Visual Disturbances: 2-Mild Sensitivity Headache: 0-None Present CIWA-Ar Total Score: 9 BHS Progress Note (SOAP) Subjective: Sweating, Fatigue, Anxious, Body Aches. Objective: PATIENT A & O X 3. IN NO ACUTE DISTRESS. 05/04/19 13:01 Vital Signs Temperature 98.6 F 05/04/19 09:28 Pulse Rate 92 H 05/04/19 09:28 Respiratory Rate 18 05/04/19 09:28 Blood Pressure 116/79 05/04/19 09:28 O2 Sat by Pulse Oximetry (%) Laboratory Tests 05/02/19 05/02/19 05/02/19 11:40 11:40 11:40 WBC 7.1 RBC 4.97 Hgb 15.6 Hct 46.7 MCV 94.0 MCH 31.4 MCHC 33.4 RDW 14.1 Plt Count 241 MPV 8.6 Sodium 138 Potassium 4.4 Chloride 101 Carbon Dioxide 31 Anion Gap 7 L BUN 14.4 Creatinine 0.9 Est GFR (CKD-EPI)AfAm 122.52 Est GFR (CKD-EPI)NonAf 105.71 Random Glucose 86 Calcium 9.3 Total Bilirubin 0.7 AST 32 ALT 39 Alkaline Phosphatase 95 Total Protein 7.8 Albumin 4.3 RPR Titer TB Test (QFT) Nil Cancelled TB Test (QFT) Mitogen Cancelled TB Test (QFT) Antigen Cancelled TB Test (QFT) Cancelled TB Positive Criteria Cancelled 05/02/19 11:40 WBC RBC Hgb Hct MCV MCH MCHC RDW Plt Count MPV Sodium Potassium Chloride Carbon Dioxide Anion Gap BUN Creatinine Est GFR (CKD-EPI)AfAm Est GFR (CKD-EPI)NonAf Random Glucose Calcium Total Bilirubin AST ALT Alkaline Phosphatase Total Protein Albumin RPR Titer Nonreactive TB Test (QFT) Nil TB Test (QFT) Mitogen TB Test (QFT) Antigen TB Test (QFT) TB Positive Criteria LABS NOTED. TB TEST RESULT PENDING. 05/04/19 13:02 Assessment: 05/04/19 13:01 WITHDRAWAL SYMPTOMS. 05/04/19 13:02 Plan: CONTINUE DETOX. INCREASE DAILY PO WATER INTAKE.
[2019-05-04] MEDS: THIAMINE HCL 100 MG TABLET (FP) PO SCH (22:27)
[2019-05-04] MEDS: QUEtiapine FUMARATE 50 MG TABLET PO SCH (22:27)
[2019-05-05] MEDS ORDERED: chlordiazePOXIDE HCL 10 MG CAPSULE PO PRN
[2019-05-05] MEDS: chlordiazePOXIDE HCL 10 MG CAPSULE PO SCH ×4 (05:45→22:19)
[2019-05-05] MEDS: NICOTINE POLACRILEX 2 MG GUM BUC PRN ×3 (05:46→17:26)
[2019-05-05] MEDS: PRENATAL VITAMINS W/ FOLIC ACID TABLET (FP) PO SCH (10:38)
[2019-05-05] MEDS: BACITRACIN/POLYMYXIN B SULFATE 15 GM TUBE TP SCH ×2 (10:39→22:22)
--- NOTE | 2019-05-05 13:57 | PN ---
[facility] CIWA - CIWA Score Nausea/Vomitin-No Nausea/No Vomiting Muscle Tremors: 2 Anxiety: 2 Agitation: 2 Paroxysmal Sweats: No Perspiration Orientation: 0-Oriented Tacttile Disturbances: 0-None Auditory Disturbances: 0-None Visual Disturbances: 0-None Headache: 0-None Present CIWA-Ar Total Score: 6 BHS Progress Note (SOAP) Subjective: 43 years old male admitted on 05/02/19 for alcohol withdrawal sx medical history of psoriasis gerd discuss aftercare with staff not sure where is best for him Objective: 05/05/19 14:00 Vital Signs Temperature 98.0 F 05/05/19 13:18 Pulse Rate 45 L 05/05/19 13:18 Respiratory Rate 18 05/05/19 13:18 Blood Pressure 105/67 05/05/19 13:18 O2 Sat by Pulse Oximetry (%) Laboratory Last Values WBC 7.1 K/mm3 (4.0-10.0) 05/02/19 11:40 RBC 4.97 M/mm3 (4.00-5.60) 05/02/19 11:40 Hgb 15.6 GM/dL (11.7-16.9) 05/02/19 11:40 Hct 46.7 % (35.4-49) 05/02/19 11:40 MCV 94.0 fl (80-96) 05/02/19 11:40 MCH 31.4 pg (25.7-33.7) 05/02/19 11:40 MCHC 33.4 g/dl (32.0-35.9) 05/02/19 11:40 RDW 14.1 % (11.9-15.9) 05/02/19 11:40 Plt Count 241 K/MM3 (134-434) 05/02/19 11:40 MPV 8.6 fl (7.5-11.1) 05/02/19 11:40 Sodium 138 mmol/L (136-145) 05/02/19 11:40 Potassium 4.4 mmol/L (3.5-5.1) 05/02/19 11:40 Chloride 101 mmol/L (98-107) 05/02/19 11:40 Carbon Dioxide 31 mmol/L (21-32) 05/02/19 11:40 Anion Gap 7 MMOL/L (8-16) L 05/02/19 11:40 BUN 14.4 mg/dL (7-18) 05/02/19 11:40 Creatinine 0.9 mg/dL (0.55-1.3) 05/02/19 11:40 Est GFR (CKD-EPI)AfAm 122.52 05/02/19 11:40 Est GFR (CKD-EPI)NonAf 105.71 05/02/19 11:40 Random Glucose 86 mg/dL (74-106) 05/02/19 11:40 Calcium 9.3 mg/dL (8.5-10.1) 05/02/19 11:40 Total Bilirubin 0.7 mg/dL (0.2-1) 05/02/19 11:40 AST 32 U/L (15-37) 05/02/19 11:40 ALT 39 U/L (13-61) 05/02/19 11:40 Alkaline Phosphatase 95 U/L (45-117) 05/02/19 11:40 Total Protein 7.8 g/dl (6.4-8.2) 05/02/19 11:40 Albumin 4.3 g/dl (3.4-5.0) 05/02/19 11:40 RPR Titer Nonreactive (NONREACTIVE) 05/02/19 11:40 TB (QFT) Incubation (.) 05/02/19 11:40 TB Test (QFT) Nil 0.03 IU/mL (.) 05/02/19 11:40 TB Test (QFT) Mitogen >10.00 IU/mL (.) 05/02/19 11:40 TB Test (QFT) Antigen 0.03 IU/mL (.) 05/02/19 11:40 TB Test (QFT) Negative (Negative) 05/02/19 11:40 TB Positive Criteria (.) 05/02/19 11:40 lab noted Assessment: 05/05/19 14:00 alcohol withdrawal sx Plan: continue alcohol detox
[2019-05-05] MEDS: QUEtiapine FUMARATE 50 MG TABLET PO SCH (22:18)
[2019-05-05] MEDS: THIAMINE HCL 100 MG TABLET (FP) PO SCH (22:19)
[2019-05-06] MEDS ORDERED: chlordiazePOXIDE HCL 10 MG CAPSULE PO SCH (05:00)
[2019-05-06] MEDS: NICOTINE POLACRILEX 2 MG GUM BUC PRN (05:43)
[2019-05-06 09:05] VITALS: BP 123/70; PULSE 70; TEMP 96.8
--- NOTE | 2019-05-06 15:51 | DS ---
[facility] Detox Discharge Summary Admission Date: 05/02/19 Discharge Date: 05/06/19 - History Present History: Alcohol Dependence Additional Comments: 43 years old male admitted on 05/02/19 for alcohol withdrawal sx medical problem of psoriasis and gerd patient was doing well through out the detox stay aftercare [facility] - Physical Exam Results Vital Signs: Vital Signs Temperature 96.8 F L 05/06/19 09:05 Pulse Rate 70 05/06/19 09:05 Respiratory Rate 18 05/06/19 09:05 Blood Pressure 123/70 05/06/19 09:05 O2 Sat by Pulse Oximetry (%) Pertinent Admission Physical Exam Findings: alcohol withdrawa Laboratory Last Values WBC 7.1 K/mm3 (4.0-10.0) 05/02/19 11:40 RBC 4.97 M/mm3 (4.00-5.60) 05/02/19 11:40 Hgb 15.6 GM/dL (11.7-16.9) 05/02/19 11:40 Hct 46.7 % (35.4-49) 05/02/19 11:40 MCV 94.0 fl (80-96) 05/02/19 11:40 MCH 31.4 pg (25.7-33.7) 05/02/19 11:40 MCHC 33.4 g/dl (32.0-35.9) 05/02/19 11:40 RDW 14.1 % (11.9-15.9) 05/02/19 11:40 Plt Count 241 K/MM3 (134-434) 05/02/19 11:40 MPV 8.6 fl (7.5-11.1) 05/02/19 11:40 Sodium 138 mmol/L (136-145) 05/02/19 11:40 Potassium 4.4 mmol/L (3.5-5.1) 05/02/19 11:40 Chloride 101 mmol/L (98-107) 05/02/19 11:40 Carbon Dioxide 31 mmol/L (21-32) 05/02/19 11:40 Anion Gap 7 MMOL/L (8-16) L 05/02/19 11:40 BUN 14.4 mg/dL (7-18) 05/02/19 11:40 Creatinine 0.9 mg/dL (0.55-1.3) 05/02/19 11:40 Est GFR (CKD-EPI)AfAm 122.52 05/02/19 11:40 Est GFR (CKD-EPI)NonAf 105.71 05/02/19 11:40 Random Glucose 86 mg/dL (74-106) 05/02/19 11:40 Calcium 9.3 mg/dL (8.5-10.1) 05/02/19 11:40 Total Bilirubin 0.7 mg/dL (0.2-1) 05/02/19 11:40 AST 32 U/L (15-37) 05/02/19 11:40 ALT 39 U/L (13-61) 05/02/19 11:40 Alkaline Phosphatase 95 U/L (45-117) 05/02/19 11:40 Total Protein 7.8 g/dl (6.4-8.2) 05/02/19 11:40 Albumin 4.3 g/dl (3.4-5.0) 05/02/19 11:40 RPR Titer Nonreactive (NONREACTIVE) 05/02/19 11:40 TB (QFT) Incubation (.) 05/02/19 11:40 TB Test (QFT) Nil 0.03 IU/mL (.) 05/02/19 11:40 TB Test (QFT) Mitogen >10.00 IU/mL (.) 05/02/19 11:40 TB Test (QFT) Antigen 0.03 IU/mL (.) 05/02/19 11:40 TB Test (QFT) Negative (Negative) 05/02/19 11:40 TB Positive Criteria (.) 05/02/19 11:40 lab noted - Treatment Hospital Course: Detox Protocol Followed, Detoxed Safely, Responded well, Discharged Condition Good, Rehab Referral Accepted Patient has Accepted a Re[facility] Referral to: [facility] - Medication Discharge Medications: Ambulatory Orders Sertraline HCl [Zoloft -] 50 mg PO DAILY #30 tablet 01/11/17 - Diagnosis (1) Alcohol dependence with uncomplicated withdrawal Status: Acute (2) GERD (gastroesophageal reflux disease) Status: Chronic Qualifiers: Esophagitis presence: without esophagitis Qualified Code(s): K21.9 - Gastro -esophageal reflux disease without esophagitis (3) Nicotine dependence Status: Acute Qualifiers: Nicotine product type: cigarettes Substance use status: in withdrawal Qualified Code(s): F17.213 - Nicotine dependence, cigarettes, with withdrawal (4) Substance induced mood disorder Status: Suspected - AMA Did Patient Leave Against Medical Advice: No
[2019-05-07] MEDS ORDERED: chlordiazePOXIDE HCL 10 MG CAPSULE PO ONE (05:00)
== END 2019-05-06 08:58 | disposition home or self-care (01) | DRG 775 ==
LOC: YASAS 09:22 → Y3N 11:10
PROVIDERS: ADMIT Surgery; ATTEND Surgery
PROC: HZ2ZZZZ Detoxification Services for Substance Abuse Treatment (ICD-10-PCS; principal; 2019-05-02)
DX: F10.230 Alcohol dependence with withdrawal, uncomplicated (principal); F12.20 Cannabis dependence, uncomplicated; F17.210 Nicotine dependence, cigarettes, uncomplicated; F31.9 Bipolar disorder, unspecified; F19.24 Other psychoactive substance dependence with psychoactive substance-induced mood disorder; K21.9 Gastro-esophageal reflux disease without esophagitis; L40.9 Psoriasis, unspecified
CPT/HCPCS: 36415; 80053; 85027; 86480; 86593